=== PATIENT | female | born 1985 | race Caucasian/White ===

== ENCOUNTER 2024-05-14 17:22 | Emergency (ER) | payer OTHER, SELFPAY ==
[2024-05-14 17:26] VITALS: BP 142/108
[2024-05-14 17:46] LABS: % Basophils 0.4 % (0-2); % Eosinophils 0.9 % (0-6); % Immature Granulocytes 0.2 % (0-0.5); % Lymphocytes 7.8 % (20.5-51.1); % Monocytes 6.4 % (1.7-9.3); % Neutrophils 84.3 % (42.2-75.2); Absolute Eosinophils 0.1 10^3/uL (0-0.7); Absolute Lymphocytes 0.7 10^3/uL (1.2-3.4); Absolute Monocytes 0.5 10^3/uL (0.1-0.6); Absolute Neutrophils 7.2 10^3/uL (1.4-6.5); Hematocrit 46.5 % (37.0-47.0); Mean Corp Hgb Conc. 34.4 g/dL (33.0-37.0); Mean Corpuscular Hgb 31.3 pg (27.0-31.0); Mean Platelet Volume 10.1 fL (7.4-10.4); Nucleated Red Blood Cells % 0 %; Platelet Count 274 10^3/uL (130-400); Red Blood Cell Count 5.11 10^6/uL (4.20-5.40); Red Cell Dist. Width 12.4 % (11.5-14.5); White Blood Cell Count 8.5 10^3/uL (4.8-10.8)
[2024-05-14 17:58] LABS: HCG, Serum Qualitative Screen Positive
[2024-05-14 18:01] LABS: ALT (SGPT) 31 U/L (0-35); AST (SGOT) 39 U/L (14-36); Albumin 4.4 g/dl (3.5-5.0); Alkaline Phosphatase 89 U/L (38-126); Blood Urea Nitrogen 16 mg/dl (7-17); Calcium 9.6 mg/dl (8.4-10.2); Carbon Dioxide 26 mmol/L (22-30); Chloride 101 mmol/L (98-107); Glucose 95 mg/dl (70-99); Lipase 108 U/L (23-300); Potassium 4.4 mmol/L (3.5-5.1); Sodium 133 mmol/L (135-145); Total Bilirubin 0.9 mg/dl (0.2-1.3); Total Protein 7.4 g/dl (6.3-8.2); eGFR > 60.00
[2024-05-14 18:32] LABS: Beta HCG Quantitative 37.81 mIU/ml
--- NOTE | 2024-05-14 18:54 | ED.GENMED ---
History of Present Illness
General
Chief Complaint: Abdominal Pain
Source: patient
Exam Limitations: none
Time Seen by Provider: 05/14/24 18:41
Nursing documentation reviewed up to this point in time: agreed with
History of Present Illness
History of Present Illness:
38-year-old female presents to the ER for evaluation. Patient complains of lower abdominal cramping since 12 AM. She is nauseous. She states her menstrual period was March 10 but also reports she had some bleeding yesterday after sexual
intercourse last night.. She has taken several test which were negative. Patient is 5 para 2 with 3 miscarriages.
Patient denies any urinary frequency urgency or dysuria. Patient does feel some discomfort in her back.
She denies diarrhea or vomiting.
Review of Systems
Review of Systems
Allergies reviewed?: Yes
All Other Systems: ROS reviewed and negative except as documented in HPI and ROS
Constitutional: Reports no symptoms
: Reports other (pt had brief episode of vaginal bleeding last night after intercourse ); Denies flank pain, urgency or discharge
Musculoskeletal: Reports no symptoms
Skin: Reports no symptoms
Neurological: Reports no symptoms
Psychiatric: Reports no symptoms
Phy Exam
General Physical Exam
General Presentation: no apparent distress
General age: appears stated age
General Skin: warm and dry
General Habitus: normal
General Mental: alert
Gastrointestinal Exam
Gastrointestinal Exam: soft and other (mild non specific tenderness )
Neurological Exam
Neurological Exam: alert and oriented x3
Musculoskeletal Exam
Musculoskeletal Exam: full ROM
Skin Exam
Skin Exam: normal color and warm/dry
Psychiatric Exam
Psychiatric Exam: normal mood/affect
Course
Orders/Labs/Results
Orders:
Orders
05/14/24 17:23
Test Result ONCE
05/14/24 17:36
Beta HCG Quantitative Urgent
Comment: ADD ON
Complete Blood Count/With Diff Urgent
Comprehensive Metabolic Panel Urgent
HCG, Serum Qualitative Screen Urgent
Lipase Urgent
05/14/24 18:00
Add On- LAB Urgent
Tests Added?: HCG quantitative
05/14/24 19:41
US W Transvaginal Urgent
Reason For Exam: pain /cramping rule out ectopic
05/14/24 19:45
Acetaminophen [Tylenol] 1,000 mg .ROUTE .STK-MED ONE
Acetaminophen [Tylenol] 1,000 mg PO NOW STA
05/14/24 22:32
Urinalysis Reflex To Culture Urgent
Date Specimen was Collected: 05/14/24
Time Specimen was Collected: 17:23
Abnormal Lab Results
05/14/24
17:36
MCH 31.3 H pg
(27.0-31.0)
Absolute Neuts (auto) 7.2 H 10^3/uL
(1.4-6.5)
Absolute Lymphs (auto) 0.7 L 10^3/uL
(1.2-3.4)
Neutrophils % 84.3 H %
(42.2-75.2)
Lymphocytes % 7.8 L %
(20.5-51.1)
Sodium 133 L mmol/L
(135-145)
AST 39 H U/L
(14-36)
05/14/24 17:36
05/14/24 17:36
Vital Signs
Initial and Last Documented VS:
Initial Vital Signs
Temp Pulse Resp BP Pulse Ox
98.0 F 119 18 142/108 100
05/14/24 17:26 05/14/24 17:26 05/14/24 17:26 05/14/24 17:26 05/14/24 17:26
Last Documented Vital Signs
Temp Pulse Resp BP Pulse Ox
98.0 F 97 18 110/64 98
05/14/24 17:26 05/14/24 22:51 05/14/24 22:51 05/14/24 22:51 05/14/24 22:51
Chairlift Operator consulted with Physician
Chairlift Operator consulted with physician?: Yes
Name of Physician Consulted: Bella
MDM/Problems Addressed
MDM/Problems Addressed:
Patient 38-year female presents with lower abdominal pain since midnight associate with nausea. She initially stated her last menstrual period was March 10 but then had some bleeding last night. Patient has taken multiple home test
which were negative at home however patient's beta-hCG today is low/positive at 37.81. Abdomen soft mild nonspecific mild tenderness. Labs unremarkable. Urinalysis negative. Ultrasound does not show any convincing sonographic evidence for IUP.
There is minimal amt of fluid within the central endometrial canal which is nonspecific. case d/c w/ ED physician , with patient's low beta-hCG will have her follow-up with her [facility] [facility](which she states is in [facility]) tomorrow. She will need
48-hour beta-hCG and to return if any worsening of symptoms.
*Critical Care Note
Total Time (30-74mins, 75-104mins- exclusive of procedures): Not Applicable
ED Attending Note
-
Portions of this chart may have been created with voice recognition software.� Occasional wrong word or��sound alike� substitutions may have occurred due to the inherent limitations of voice recognition software.
Discharge Plan
Departure
Patient Disposition: Home (Routine Discharge)
Date of Disposition: 05/14/24
Time of Disposition: 23:00
Patient with high blood pressure during this ER visit?: Yes
Condition: Fair
Covid-19: Not Applicable
Discharge Problem:
Threatened miscarriage
Referrals:
Cayden Banuelos MD [Family Provider] -
Activity Restrictions/Additional Instructions:
As discussed it is important that you follow-up with your [employer] tomorrow. You will need repeat beta hCG testing in 48 hours. On your ultrasound there is no convincing evidence for intrauterine at this time.
Return if any worsening of symptoms include increased pain, lightheaded dizziness or any further concerns.
Interventions
Interventions:
*Risk Screen - Suicide Last Done: 05/14/24 17:26
*General Assessment Last Done: 05/14/24 17:26
*Neglect/Abuse Screening Last Done: 05/14/24 17:26
ED- Fall Risk Assessment Last Done: 05/14/24 23:15
*ED COVID-19 Vaccine History Last Done: 05/14/24 17:26
*Nursing Disposition Last Done: 05/14/24 23:15
SN-Zecdaf-Dihvgvetps Assessment Last Done: 05/14/24 20:34
Discharge Date and Time
Discharge Date/Time: 05/14/24 23:15
Print Language: ARABIC
[2024-05-14] MEDS: TYLENOL 1000 MG PO (19:46)
[2024-05-14 22:40] LABS: Urine Albumin Negative (Neg - Trace); Urine Bilirubin Negative (Negative); Urine Character Clear (Clear); Urine Color Straw; Urine Glucose Negative (Negative); Urine Ketone Negative (Negative); Urine Leukocyte Negative (Negative); Urine Nitrite Negative (Negative); Urine Occult Blood Negative (Negative); Urine Specific Gravity 1.005 (<1.030); Urine Urobilinogen Negative (Neg - 1+); Urine pH 6.5 (5.0-9.0)
[2024-05-14 22:51] VITALS: BP 110/64
== END 2024-05-14 23:15 | disposition home or self-care (01) ==
LOC: EMR 17:22
PROVIDERS: Student in an Organized Health Care Education/Training Program; EMERGENCY PHYSICIAN Student in an Organized Health Care Education/Training Program; FAMILY PHYSICIAN Internal Medicine
DX: O20.0 Threatened abortion (principal); O09.521 Supervision of elderly multigravida, first trimester; Z3A.00 Weeks of gestation of pregnancy not specified
CPT/HCPCS: 99284; 76801; 76817; 80053; 81003; 83690; 84702; 84703; 85025